=== PATIENT | male | born 1960 | race Caucasian/White ===

== ENCOUNTER → 2019-04-05 | Outpatient (CLI) | payer OTHER ==
[~2019-04-05] MED LIST: BP MED PO; HYDROCODONE PO
[2019-04-05 11:23] LABS: ALBUMIN 4.2 g/dL (3.4-5.0); ANION GAP 6 mmol/L (5-15); CALCIUM 9.1 mg/dL (8.5-10.1); CHLORIDE 110 mmol/L (98-107)
[2019-04-05 11:26] LABS: ALANINE AMINOTRANSFERASE 19 U/L (12-78); ALKALINE PHOSPHATASE 77 U/L (45-117); BILIRUBIN,TOTAL 0.5 mg/dL (0.2-1.0); CREATININE 0.93 mg/dL (0.7-1.3); TOTAL PROTEIN 7.7 g/dL (6.4-8.2)
== END | disposition home or self-care (01) ==
LOC: STAR 10:04
PROVIDERS: ATTEND Surgery
DX: Z01.818 Encounter for other preprocedural examination (principal); K40.90 Unilateral inguinal hernia, without obstruction or gangrene, not specified as recurrent
CPT/HCPCS: 36415; 80053; 93005

== ENCOUNTER 2019-04-11 12:55 | Day surgery (SDC) | payer OTHER ==
[~2019-04-11] VITALS: Ht 182.9 cm; Wt 81.8 kg
[2019-04-11] MEDS ORDERED: LACTATED RINGERS 1,000 ML IV SCH (13:22)
[2019-04-11] MEDS ORDERED: LIDOCAINE-MPF 1%, 2ML INFIL ONE (13:30)
[2019-04-11] MEDS ORDERED: GABAPENTIN 300 MG CAPSULE PO ONE (13:30)
[2019-04-11] MEDS ORDERED: ACETAMINOPHEN 500 MG TABLET PO ONE (13:30)
[2019-04-11] MEDS ORDERED: BUPIVACAINE/PF 0.5% ONE (14:49)
[2019-04-11] MEDS ORDERED: EPINEPHRINE 1 MG/ML, 1ML ONE (14:49)
[2019-04-11] MEDS ORDERED: FENTANYL PF 250 MCG/5ML ONE (14:53)
[2019-04-11] MEDS ORDERED: MIDAZOLAM 1 MG/ML, 2ML ONE (14:53)
[2019-04-11] MEDS ORDERED: DEXMEDETOMIDINE 200 MCG/2 ML ONE (14:56)
[2019-04-11] MEDS ORDERED: ROCURONIUM 10 MG/ML,10ML ONE (15:02)
[2019-04-11] MEDS ORDERED: DEXAMETHASONE 4 MG/ML, 1ML ONE (15:02)
[2019-04-11] MEDS ORDERED: ONDANSETRON 2MG/ML, 2ML ONE (15:02)
[2019-04-11] MEDS ORDERED: CEFOTETAN 2 GM ONE (15:02)
[2019-04-11] MEDS ORDERED: GLYCOPYRROLATE 0.2MG/1ML, 5ML ONE (15:02)
[2019-04-11] MEDS ORDERED: PHENYLEPHRINE 10 MG/ML ONE (15:02)
[2019-04-11] MEDS ORDERED: PROPOFOL 10 MG/ML, 20ML ONE (15:02)
[2019-04-11] MEDS ORDERED: SUGAMMADEX 200 MG/2 ML IVPush ONE (15:02)
[2019-04-11] MEDS ORDERED: HYDROmorphone 2 MG/ML, 1ML IVPush PRN (16:00)
[2019-04-11] MEDS ORDERED: MEPERIDINE/PF 25MG/0.5ML IVPush PRN (16:00)
[2019-04-11] MEDS ORDERED: LORazepam 2 MG/ML, 1ML IVPush PRN (16:00)
[2019-04-11] MEDS ORDERED: hydrALAzine 20 MG/ML, 1ML IV PRN (16:00)
[2019-04-11] MEDS ORDERED: METOCLOPRAMIDE 5 MG/ML, 2ML IV PRN (16:00)
[2019-04-11] MEDS ORDERED: METOPROLOL 1 MG/ML, 5ML IV PRN (16:00)
[2019-04-11] MEDS ORDERED: LABETALOL 5MG/ML, 20ML IV PRN (16:00)
[2019-04-11] MEDS ORDERED: ONDANSETRON 2MG/ML, 2ML IV PRN (16:00)
[2019-04-11] MEDS ORDERED: OXYcodone 5 MG/5 ML ORAL.SOL UDC PO PRN (16:00)
[2019-04-11] MEDS ORDERED: OXYcodone 5 MG/5 ML ORAL.SOL UDC ONE (16:33)
[2019-04-11] MEDS ORDERED: FENTANYL PF 100 MCG/2ML ONE (16:34)
[2019-04-11] MEDS ORDERED: hydrALAzine 20 MG/ML, 1ML ONE (16:53)
[2019-04-11] MEDS: FENTANYL PF 100 MCG/2ML IV PRN ×2 (17:30→17:50)
== END 2019-04-11 18:50 | disposition home or self-care (01) ==
LOC: OUT 12:55
PROVIDERS: ATTEND Surgery
DX: K40.90 Unilateral inguinal hernia, without obstruction or gangrene, not specified as recurrent (principal); I10 Essential (primary) hypertension; Z85.828 Personal history of other malignant neoplasm of skin; Z82.49 Family history of ischemic heart disease and other diseases of the circulatory system; Z96.642 Presence of left artificial hip joint; Z98.890 Other specified postprocedural states
CPT/HCPCS: 49650; C1781; J0171; J0360; J1100; J2250; J2370; J2405; J2704; J3010; J3490; J7120; S2900